=== PATIENT | male | born 1995 | race Hispanic/Latino ===

== ENCOUNTER 2018-08-19 09:33 | Emergency (ER) | payer SELFPAY ==
--- OUTSIDE RECORDS SUMMARY | 2018-08-19 09:36 | XMS REPORT ---
:1995 [facility] [address] [place] [address] Dr. Martinez [address] [place] [id number] Care Team Providers Name Role Phone Unavailable Unavailable Unavailable Problems This patient has no known problems. Allergies, Adverse Reactions, Alerts This patient has no known allergies or adverse reactions. Medications This patient has no known medications.
--- NOTE | 2018-08-19 10:44 | RAD REPORT ---
EXAM DESCRIPTION: CT - Head Brain Wo Cont - 08/19/2018 10:30 am CLINICAL HISTORY: Headache COMPARISON: None. TECHNIQUE: Computed axial tomography of the head was obtained. IV contrast was not requested. All CT scans are performed using dose optimization technique as appropriate and may include automated exposure control or mA/KV adjustment according to patient size. FINDINGS: An intracranial bleed is not seen . The ventricles are normal in caliber. No extra-axial fluid collection is noted. Fluid within the sinuses/ mastoids is not seen. IMPRESSION: No acute intracranial abnormality is seen. If patient's symptoms persist MRI of the bra in would be recommended.
--- NOTE | 2018-08-19 11:22 | ER ---
Nurse's Notes [facility] Name: Ganga Sweeney Jr Age: 23 yrs Sex: Male : 1995 Arrival Date: 08/19/2018 Time: 09:35 Bed 25 Private MD: Diagnosis: Headache Presentation: 08/19 09:50 Presenting complaint: Patient states: headache x 3 days. Fever that began Sunday, but ss has since gone away. Transition of care: patient was not received from another setting of care. Onset of symptoms was August 17, 2018. Risk Assessment: Do you want to hurt yourself or someone else? Patient reports no desire to harm self or others. Initial Sepsis Screen: Does the patient meet any 2 criteria? No. Patient's initial sepsis screen is negative. Does the patient have a suspected source of infection? No. Patient's initial sepsis screen is negative. Care prior to arrival: None. 09:50 Method Of Arrival: Ambulatory ss 09:50 Acuity: TED 4 ss Triage Assessment: 11:40 Pain: Pain began Also complains of no other associated symptoms. iw 11:40 Headache History: The patient has had previous headaches and this one is similar to iw previous episodes. 11:40 Pain: Pain currently is 5 out of 10 on a pain scale. iw Historical: - Allergies: 09:50 No Known Allergies; ss - Home Meds: 09:50 None [Active]; ss - PMHx: 09:50 None; ss - PSHx: 09:50 None; ss - Immunization history:: Adult Immunizations unknown. - Social history:: Smoking status: Patient/guardian denies using tobacco. - Ebola Screening: : Patient denies exposure to infectious person Patient denies travel to an Ebola-affected area in the 21 days before illness onset. Screenin:15 Abuse screen: Denies threats or abuse. Denies injuries from another. Nutritional aj1 screening: No deficits noted. Tuberculosis screening: No symptoms or risk factors identified. 11:39 Fall Risk None identified. iw Assessment: 10:15 General: Appears in no apparent distress. Behavior is calm, cooperative, appropriate aj1 for age. Pain: Complains of pain in forehead. Neuro: Level of Consciousness is awake, alert, obeys commands, Oriented to person, place, time, situation, Moves all extremities. Full function Gait is steady, Speech is normal, Facial symmetry appears normal, Reports headache. Cardiovascular: Patient's skin is warm and dry. Respiratory: Airway is patent Respiratory effort is even, unlabored, Respiratory pattern is regular, symmetrical. GI: No signs and/or symptoms were reported involving the gastrointestinal system. : No signs and/or symptoms were reported regarding the genitourinary system. EENT: No signs and/or symptoms were reported regarding the EENT system. Derm: No signs and/or symptoms reported regarding the dermatologic system. Skin is pink, warm \T\ dry. normal. Musculoskeletal: No signs and/or symptoms reported regarding the musculoskeletal system. Circulation, motion, and sensation intact. 10:28 Reassessment: Patient transported to CT via wheelchair. aj1 11:15 Reassessment: Patient appears in no apparent distress at this time. No changes from aj1 previously documented assessment. Patient and/or family updated on plan of care and expected duration. Pain level reassessed. Patient is alert, oriented x 3, equal unlabored respirations, skin warm/dry/pink. Vital Signs: 09:50 BP 138 / 89; Pulse 74; Resp 16; Temp 98.8(TE); Pulse Ox 98% on R/A; Weight 99.79 kg; ss Height 5 ft. 8 in. (172.72 cm); Pain 4/10; 09:50 Body Mass Index 33.45 (99.79 kg, 172.72 cm) ss [place] Coma Score: 11:20 Eye Response: spontaneous(4). Verbal Response: oriented(5). Motor Response: obeys kb commands(6). Total: 15. ED Course: 09:35 Patient arrived in ED. as 09:50 Triage completed. ss 09:50 Arm band placed on left wrist. ss 10:02 Josefa Rodriguez RN is Primary Nurse. aj1 10:02 Kia Hester FNP-C is PHCP. kb 10:02 Inocencio Rizvi MD is Attending Physician. kb 10:15 Patient has correct armband on for positive identification. Bed in low position. Call aj1 light in reach. Side rails up X 1. 10:15 No provider procedures requiring assistance completed. aj1 10:30 CT Head Brain wo Cont In Process Unspecified. EDMS 11:39 Patient did not have IV access during this emergency room visit. iw Administered Medications: 11:33 Drug: TORadol 60 mg Route: IM; Site: left deltoid; iw 11:40 Follow up: Response: No adverse reaction iw Outcome: 11:22 Discharge ordered by . viry 11:39 Discharged to home ambulatory. iw 11:39 Condition: good 11:39 Discharge instructions given to patient, family, Instructed on discharge instructions, follow up and referral plans. Demonstrated understanding of instructions, follow-up care. 11:40 Patient left the ED. iw Signatures: Dispatcher [employer] EDKia Keene, DIRECTOR EDUCATION-C DIRECTOR EDUCATION-CkJosefa Lorenz RN RN aj1 Heidy Workman Irene, RN RN iw Adrianne Conte RN RN ss
--- NOTE | 2018-08-19 11:22 | EDPHYS ---
Physician Documentation [facility] Name: Ganga Sweeney Jr Age: 23 yrs Sex: Male : 1995 Arrival Date: 08/19/2018 Time: 09:35 Bed 25 Private MD: ED Physician Inocencio Rizvi HPI: 08/19 11:20 This 23 yrs old Male presents to ER via Ambulatory with complaints of kb Headache, Fever. 11:20 The patient complains of pain to the forehead. The patient describes the headache as kb intermittent. Onset: The symptoms/episode began/occurred 3 day(s) ago. Associated signs and symptoms: Pertinent positives: fever. Severity of symptoms: At its worst the pain was moderate, in the emergency department the pain has improved. Headache History: Denies prior headaches. The symptoms are alleviated by nothing. the symptoms are aggravated by nothing. The patient has not experienced similar symptoms in the past. The patient has not recently seen a physician. Pt reports headache that is intermittent and has been going on for 3 days. Reports fever 2 days ago. Rhinorrhea started today. Historical: - Allergies: 09:50 No Known Allergies; ss - Home Meds: 09:50 None [Active]; ss - PMHx: 09:50 None; ss - PSHx: 09:50 None; ss - Immunization history:: Adult Immunizations unknown. - Social history:: Smoking status: Patient/guardian denies using tobacco. - Ebola Screening: : Patient denies exposure to infectious person Patient denies travel to an Ebola-affected area in the 21 days before illness onset. ROS: 11:16 Cardiovascular: Negative for chest pain, palpitations, and edema, Respiratory: Negative kb for shortness of breath, cough, wheezing, and pleuritic chest pain, Abdomen/GI: Negative for abdominal pain, nausea, vomiting, diarrhea, and constipation, Back: Negative for injury and pain, MS/Extremity: Negative for injury and deformity, Skin: Negative for injury, rash, and discoloration. 11:16 Constitutional: Positive for fever. 11:16 ENT: Positive for rhinorrhea. 11:16 Neuro: Positive for headache, Negative for altered mental status, dizziness, gait disturbance. Exam: 11:16 Constitutional: This is a well developed, well nourished patient who is awake, alert, kb and in no acute distress. Head/Face: Normocephalic, atraumatic. ENT: Nares patent. No nasal discharge, no septal abnormalities noted. Tympanic membranes are normal and external auditory canals are clear. Oropharynx with no redness, swelling, or masses, exudates, or evidence of obstruction, uvula midline. Mucous membranes moist. Neck: Trachea midline, no thyromegaly or masses palpated, and no cervical lymphadenopathy. Supple, full range of motion without nuchal rigidity, or vertebral point tenderness. No Meningismus. Chest/axilla: Normal chest wall appearance and motion. Nontender with no deformity. No lesions are appreciated. Cardiovascular: Regular rate and rhythm with a normal S1 and S2. No gallops, murmurs, or rubs. Normal PMI, no JVD. No pulse deficits. Respiratory: Lungs have equal breath sounds bilaterally, clear to auscultation and percussion. No rales, rhonchi or wheezes noted. No increased work of breathing, no retractions or nasal flaring. Abdomen/GI: Soft, non-tender, with normal bowel sounds. No distension or tympany. No guarding or rebound. No evidence of tenderness throughout. Skin: Warm, dry with normal turgor. Normal color with no rashes, no lesions, and no evidence of cellulitis. MS/ Extremity: Pulses equal, no cyanosis. Neurovascular intact. Full, normal range of motion. Neuro: Awake and alert, GCS 15, oriented to person, place, time, and situation. Cranial nerves II-XII grossly intact. Motor strength 5/5 in all extremities. Sensory grossly intact. Cerebellar exam normal. Normal gait. Vital Signs: 09:50 BP 138 / 89; Pulse 74; Resp 16; Temp 98.8(TE); Pulse Ox 98% on R/A; Weight 99.79 kg; ss Height 5 ft. 8 in. (172.72 cm); Pain 4/10; 09:50 Body Mass Index 33.45 (99.79 kg, 172.72 cm) [place] Coma Score: 11:20 Eye Response: spontaneous(4). Verbal Response: oriented(5). Motor Response: obeys kb commands(6). Total: 15. MDM: 10:03 Patient medically screened. kb 11:20 Data reviewed: vital signs, nurses notes. Data interpreted: Pulse oximetry: on room air kb is 98 %. Interpretation: normal. Counseling: I had a detailed discussion with the patient and/or guardian regarding: the historical points, exam findings, and any diagnostic results supporting the discharge/admit diagnosis, the need for outpatient follow up, a family practitioner, to return to the emergency department if symptoms worsen or persist or if there are any questions or concerns that arise at home. 08/19 10:21 Order name: Flu; Complete Time: 11:09 kb 08/19 11:20 Order name: Urine Dipstick--Ancillary (enter results) bd 08/19 10:21 Order name: CT Head Brain wo Cont; Complete Time: 10:46 kb 08/19 10:21 Order name: Urine Dipstick-Ancillary (obtain specimen); Complete Time: 10:59 kb 08/19 11:21 Order name: Urine Dipstick-Ancillary EDMS Administered Medications: 11:33 Drug: TORadol 60 mg Route: IM; Site: left deltoid; iw 11:40 Follow up: Response: No adverse reaction iw Disposition: 15:06 Co-signature as Attending Physician, Inocencio Rizvi MD I agree with the assessment and bee plan of care. Disposition: 08/19/18 11:22 Discharged to Home. Impression: Headache. - Condition is Stable. - Discharge Instructions: General Headache Without Cause, [id number]. - Medication Reconciliation Form, Thank You Letter, Antibiotic Education, Prescription Opioid Use, Work release form form. - Follow up: Emergency Department; When: As needed; Reason: Worsening of condition. Follow up: Private Physician; When: 2 - 3 days; Reason: Recheck today's complaints, Continuance of care, Re-evaluation by your physician. Signatures: Dispatcher [employer] EDMS Kia Hester, TONY-Inocencio Zavala MD MD cha Williams, Irene, RAE RN Adrianne Hoff RN RN ss Corrections: (The following items were deleted from the chart) 11:40 11:22 08/19/2018 11:22 Discharged to Home. Impression: Headache. Condition is Stable. iw Forms are Medication Reconciliation Form, Thank You Letter, Antibiotic Education, Prescription Opioid Use. Follow up: Emergency Department; When: As needed; Reason: Worsening of condition. Follow up: Private Physician; When: 2 - 3 days; Reason: Recheck today's complaints, Continuance of care, Re-evaluation by your physician. kb
[2018-08-19] MEDS ORDERED: KETOROLAC 30 MG/ML INJ ONE (11:42)
[2018-08-19 12:02] LABS: Urine Blood NEGATIVE (NEG); Urine Glucose NEGATIVE (NEG); Urine Protein TRACE (NEG); Urine Specific Gravity 1.025 (1.005-1.030); Urine pH 6.5 (5.0-7.0)
== END 2018-08-19 11:40 | disposition home or self-care (01) ==
LOC: ER 09:33
DX: R51 Headache (principal)
CPT/HCPCS: 70450; 81003; 87804; 96372; 99283

== ENCOUNTER 2024-12-14 03:21 | Emergency (ER) | payer BC, SELFPAY ==
--- OUTSIDE RECORDS SUMMARY | 2024-12-14 03:26 | XMS REPORT | Continuity of Care Document ---
Author Name Unknown Address [address] [place] [address] Organization [facility] Address [address] [place] [address] Care Team Providers Care Nut Roaster Name Role Phone Pcp, Patient Does Not Have A Primary Care Physic kati Ricardo Segal Attending Clinician [phone] Radiology Attending Clinician Janee Kumar Attending Clinician [phone] Payers Payer Name Policy Type Policy Number Effective Date Expirati on Date Source Problems Condition Name Condition Details Condition Category Status Onset Date Resolution Date Last Treatment Date Treating Clinician Comments Source Open wound of foot except toes with tendon involvemen t Open wound of foot except toes with tendon involvemen t Disease Active 10-30 00:00: 00 Overview: Formattin g of this note might be different from the original. 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 [facility] Allergies, Adverse Reactions, Alerts Allergy Name Allergy Type Status Severity Reaction(s) Onset Date Inactive Date Treating Clinician Comments Source NO KNOWN ALLERGIE S Drug Class Active [facility] Social History Social Habit Start Date Stop Date Quantity Comments Source Exposure to SARS-CoV-2 (event) Not sure [facility] Sexual orientation U [facility] Sex assigned at 1995 00:00:00 1995 00:00:00 [facility] Smoking Status Start Date Stop Date Source Tobacco smoking consumption unknown [facility] Medications Ordered Medication Name Filled Medication Name Start Date Stop Date Current Medication? Ordering Clinician Indication Dosage Frequency Signature (SIG) Comments Components Source ketorolac (TORADOL) injection 30 mg 12-23 02:00: 00 12-23 01:02 :00 No 30mg 30 mg, Slow IV Push, ONCE, 1 dose, Sun12/22/20 at 2100, GUANACO
Fa culty member approving Restricted medication : EMERGENCY ROOM, [facility] NaCl 0.9% (NS) bolus infusion 1,000 mL 12-23 02:00: 00 12-23 01:52 :00 No 1000mL at 999 mL/hr, 1,000 mL, IV Piggyback, ONCE, 1 dose, Sun12/22/20 at 2100, STAT [facility] ibuprofen (MOTRIN) 600 mg tablet 10-30 00:00: 00 Yes 600mg Take 1 Tab by mouth every 6 (six) hours as needed for Alternate with [place] for pain scale 1-3. [facility] HYDROcodone -acetaminop hen (NORCO 5) 5-325 mg tablet 10-30 00:00: 00 Yes 1{tbl} Take 1 Tab by mouth every 4 (four) hours as needed for Pain unrelieved by non-narcot ic analgesics . [facility] cyclobenzap rine (FLEXERIL) 5 mg tablet 10-30 00:00: 00 Yes 5mg Take 1 Tab by mouth 3 (three) times daily. [facility] Vital Signs Vital Name Observation Time Observation Value Comments S yevgeniy Systolic blood pressure 2020-12-22 23:00:00 144 mm[Hg] [facility] Diastolic blood pressure 2020-12-22 23:00:00 87 mm[Hg] [facility] Heart rate 2020-12-22 23:00:00 87 /min [facility] Body temperature 2020-12-22 23:00:00 37.22 Sadia [facility] Respiratory rate 2020-12-22 23:00:00 18 /min [facility] Body weight 2020-12-22 23:00:00 102.513 kg [facility] Oxygen saturation in Arterial blood by Pulse oximetry 2020-12-22 23:00:00 100 /min [facility] Procedures Procedure Date / Time Performed Performing Clinician Source US SCROTUM AND CONTENTS 2024-11-03 14:55:24 Requisitio n, Sarai [facility] XR CHEST 2 VW 2020-12-22 23:19:44 Singer [facility] LIPASE 2020-12-22 23:07:00 [facility] TROPONIN I 2020-12-22 23:07:00 Singer [facility] COMP. METABOLIC PANEL ([id number]) 2020-12-22 23:07:00 Singer [facility] CBC WITH DIFF 2020-12-22 23:07:00 Singh, [facility] PROTHROMBIN TIME / INR 2020-12-22 23:07:00 Pal Singh [facility] D-DIMER 2020-12-22 23:07:00 Janee Hughes [facility] ACTIVATED PARTIAL THRMPLAS REDDY 2020-12-22 23:07:00 Singer [facility] COVID-19 (ID NOW RAPID TESTING) 2020-12-22 23:07:00 Singh, [facility] NOTICE OF PRIVACY PRACTICES 2020-12-22 22:54:51 Doctor Unassigned, [place] [facility] CONSENT/REFUSAL FOR DIAGNOSIS AND TREATMENT 2020-12-22 22:51:49 Doctor Unassigned, [place] [facility] Encounters Start Date/Time End Date/Time Encounter Type Admission Type Attending Clinicians Care Facility Care Department Encounter ID Source 2024-11-13 00:00:00 2024-11-13 09:09:34 Letter (Out) Ricardo Segal [facility] ([place]OL[facility]DA) [id number] [facility] 2024-11-03 09:17:59 2024-11-03 23:59:00 Hospital Encounter Radiology Radiology [facility] [id number] [facility] 2020-12-22 18:14:00 2020-12-22 21:14:00 Emergency Janee Hughes [facility] [id number] [facility] 2020-12-22 17:52:00 2020-12-22 17:52:00 Emergency X [facility] ERT [id number] [facility] Results Test Description Test Time Test Comments Results Result Comments Source US Scrotum and contents 22:08:18 EXAM: US SCROTUM AND CONTENTS HISTORY: 29 years-old Male; Provided indication: Left Testicular pain Pain left testes, family history of testicular cancer. TECHNIQUE: Ultrasound imaging with color Doppler of the scrotum wasperformed. Real Estate Instructor images were obtained for the record. COMPARISON: None FINDINGS: Right Testicle: The right testicle is small in size and normal in shape,and heterogenous in echotexture. The right testicle measures 4.6 by 2 x 20.8 cm, with a volume of 13.3 mL. The blood flow is normal. No focal lesionis seen. Numerous punctate microcalcifications are visualized. Tinyperitesticular fluid with septation. Right Epididymis: The right epididymal head is normal in size anddemonstrates normal blood flow. Left Testicle: The left testicle is small in size and normal in shape, andmildly heterogenous echotexture. The left testicle measures 4.4 x 1.8 x 3.2cm, with a volume of 13.4 mL. The blood flow is normal. No focal lesion isseen. Small hydrocele with internal echogenic debris. Left Epididymis: The left epididymal head is normal in size anddemonstrates normal blood flow. Multiple tubular and serpentine anechoic structures are visualized in theleft inguinal canal. Increased color flow is demonstrated with Valsalva.. [facility] [id number] 00:07:38* Test Item Value Reference Range Interpretation Comments TROPONIN I (test code = 8923582718) 0.003 ng/mL See_Comment [Automated message] The system which generated this result transmitted reference range: <=0.034. The reference range was not used to interpret this result as normal/abnormal. GUZMAN (test code = GUZMAN) Reference (Normal) Range (defined by the 99th percentile reference limit): <= 0.034 ng/mL Note: Cardiac troponin begins to rise 3-4 hours after the onset of ischemia. Repeat in 4-6 hours if the sample was drawn within 3-4 hours of the onset of the symptom and found normal. Diagnosis of myocardial injury is made with acute changes in cTn concentrations with at least one serial sample above the 99th percentile upper reference limit (URL), taken together with the patient's clinical presentation. Biotin has been reported to cause a negative bias, interpret results relative to patient's use of biotin. Lab Interpretation (test code = 11026-7) Normal [facility]. METABOLIC PANEL ([id number])2020-12-22 23:57:34* Test Item Value Reference Range Interpretation Comme nts NA (test code = 7732667738) 137 mmol/L 135-145 K (test code = 8147771378) 4.0 mmol/L 3.5-5.0 CL (test code = 9042000971) 98 mmol/L 98-108 CO2 TOTAL (test code = 3728938256) 24 mmol/L 23-31 AGAP (test code = 7251820957) 2-16 BUN (test code = 9996640582) 29 mg/dL 7-23 H GLUCOSE (test code = 3309222460) 99 mg/dL 70-110 CREATININE (test code = 7579884207) 1.35 mg/dL 0.60-1.25 H TOTAL BILI (test code = 9452492145) 0.7 mg/dL 0.1-1.1 CALCIUM (test code = 6905840506) 11.4 mg/dL 8.6-10.6 H T PROTEIN (test code = 4367555133) 10.1 g/dL 6.3-8.2 H ALBUMIN (test code = 1177117930) 5.6 g/dL 3.5-5.0 H ALK PHOS (test code = 4495756334) 89 U/L 34-122 ALTv (test code = 1742-6) 38 U/L 5-50 AST(SGOT) (test code = 5904500185) 42 U/L 13-40 H eGFR (test code = 0958632617) mL/min/1.73m2 GUZMAN (test code = GUZMAN) Association of Glomerular Filtration Rate (GFR) and Staging of Kidney Disease* + --+ --+ ------+| GFR (mL/min/1.73 m2) ?| With Kidney Damage ?| ?Without Kidney Damage+ --------+ --------+ +| ?>90 ?| ?Stage one ?| ? Normal ?+ ---+ ---+ -------+| ?60-89 ?| ?Stage two ?| ? Decreased GFR ? + --+ --+ ------+| ?30-59 ?| ?Stage three ?| ? Stage three ? + --+ --+ ------+| ?15-29 ?| ?Stage four ? | ? Stage four ?+ ---+ ---+ -------+| ?<15 (or dialysis) ? ?| ?Stage five ? | ? Stage five ?+ ---+ ---+ -------+ *Each stage assumes the associated GFR level has been in effect for at least three months. ?Stages 1 to 5, with or without kidney disease, indicate chronic kidney disease. Notes: Determination of stages one and two (with eGFR >59mL/min/1.73 m2) requires estimation of kidney damage for at least three months as defined by structural or functional abnormalities of the kidney, manifested by either:Pathological abnormalities or Markers of kidney damage (including abnormalities in the composition of the blood or urine or abnormalities in imaging tests). Lab Interpretation (test code = 53632-6) [facility] NOW [facility]APID TEST[facility])2020-12-22 23:57:18* Test Item Value Reference Range Interpretation Comme nts SARS-CoV-2 Rapid ID NOW (test code = 50727-6) Not Detected Not Detected GUZMAN (test code = GUZMAN) ID NOW COVID-19 As say is an isothermal nucleic acid amplification test intended for the qualitative detection of nucleic acid from SARS-CoV-2 viral RNA in nasopharyngeal (SUPERINTENDENT DIVISION) specimens. It is used under Emergency Use Authorization (EUA) by FDA. The limit of detection (LOD) of the assay is 125 Genome Equivalents/mL. A positive result is indicative of the presence of SARS-CoV-2 RNA. ?Clinical correlation with patient history and other diagnostic information is necessary to determine patient infection status. A negative (Not Detected) result does not preclude SARS-CoV-2 infection. In patients with clinical symptoms and other tests that are consistent with SARS-CoV-2 infection, negative results should be treated as presumptive negative and a new specimen should be tested with alternative PCR molecular test. Invalid: Please collect a new specimen for repeat patient testing if clinically indicated. Lab Interpretation (test code = 28982-8) [facility] [id number] 23:57:13* Test Item Value Reference Range Interpretation Comme nts LIPASE (test code = 0400343957) 104 U/L 0-220 Lab Interpretation (test cod e = 12483-1) Normal [facility]2021-[facility] 23:55:35* Test Item Value Reference Range Interpretation Comme nts APTT Patient (test code = 3173-2) See_Comment [Automated message] The system which generated this result transmitted reference range: 23 - 38 Seconds. The reference range was not used to interpret this result as normal/abnormal. GUZMAN (test code = GUZMAN) The [facility] patient population mean normal value for aPTT is 30 seconds. Lab Interpretation (test code = 32893-6) [facility] / [id number] 23:53:53* Test Item Value Reference Range Interpretation Comme nts PROTIME PATIENT (test code = 5964-2) See_Comment [Automated Thubrikar Aortic Valvea ge] The system which generated this result transmitted reference range: 12.0 - 14.7 Seconds. The reference range was not used to interpret this result as normal/abnormal. INR (test code = 6301-6) Normal INR <1.1; Warfarin Therapeutic range 2.0 to 3.0 or 2.5 to 3.5, depending upon the indications. Lab Interpretation (test code = 48811-6) [facility] [id number] 23:44:11* Test Item Value Reference Range Interpretation Comme nts WBC (test code = 6690-2) See_Comment H [Automated messa ge] The system which generated this result transmitted reference range: 4.20 - 10.70 10*3/?L. The reference range was not used to interpret this result as normal/abnormal. RBC (test code = 789-8) See_Comment [Automated messa ge] The system which generated this result transmitted reference range: 4.26 - 5.52 10*6/?L. The reference range was not used to interpret this result as normal/abnormal. HGB (test code = 718-7) 16.2 g/dL 12.2-16.4 HCT (test code = 4544-3) 48.8 % 38.4-49.3 MCV (test code = 787-2) 90.0 fL 81.7-95.6 MCH (test code = 785-6) 29.9 pg 26.1-32.7 MCHC (test code = 786-4) 33.2 g/dL 31.2-35.0 RDW-SD (test code = 96161-4) 39.3 fL 38.5-51.6 RDW-CV (test code = 788-0) 11.9 % 12.1-15.4 L PLT (test code = 777-3) See_Comment [Automated Thubrikar Aortic Valvea ge] The system which generated this result transmitted reference range: 150 - 328 10*3/?L. The reference range was not used to interpret this result as normal/abnormal. MPV (test code = 11357-2) 10.2 fL 9.8-13.0 NRBC/100 WBC (test code = 0329902470) See_Comment [Automated Physician Referral Network (PRN) ssage] The system which generated this result transmitted reference range: 0.0 - 10.0 /100 WBCs. The reference range was not used to interpret this result as normal/abnormal. NRBC x10^3 (test code = 2811386701) <0.01 See_Comment [Automated Thubrikar Aortic Valvea ge] The system which generated this result transmitted reference range: 10*3/?L. The reference range was not used to interpret this result as normal/abnormal. GRAN MAT (NEUT) % (test code = 770-8) 62.4 % IMM GRAN % (test code = 3823574193) 0.50 % LYMPH % (test code = 736-9) 26.9 % MONO % (test code = 5905-5) 8.9 % EOS % (test code = 713-8) 0.9 % BASO % (test code = 706-2) 0.4 % GRAN MAT x10^3(ANC) (test code = 7927607964) 6.97 10*3/uL 1.99-6.95 H IMM GRAN x10^3 (test code = 7933402644) 0.06 10*3/uL 0.00-0.06 LYMPH x10^3 (test code = 731-0) 3.01 10*3/uL 1.09-3.23 MONO x10^3 (test code = 742-7) 0.99 10*3/uL 0.36-1.02 EOS x10^3 (test code = 711-2) 0.10 10*3/uL 0.06-0.53 BASO x10^3 (test code = 704-7) 0.05 10*3/uL 0.01-0.09 Lab Interpretation (test code = 25951-9) Abnormal [facility]"
[2024-12-14] MEDS ORDERED: IBUPROFEN 200 MG TAB PO ONE (03:42)
[2024-12-14 04:08] LABS: Influenza A Ag Negative; Influenza B Ag Negative; SARS-CoV-2 Antigen Rapid Res Negative (Negative)
--- NOTE | 2024-12-14 04:18 | EDPHYS ---
Physician Documentation [facility] Name: Ganga Sweeney Jr Age: 29 yrs Sex: Male : 1995 Arrival Date: 12/14/2024 Time: 03:21 Bed IW1 Private MD: Ricardo Segal B ED Physician Kris Amezcua HPI: 12/14 03:37 This 29 yrs old Male presents to ER via Unassigned with complaints of Fever, ms3 Cough, Flu Symptoms. 03:37 29-year-old male with no past medical history presents to the emergency department for ms3 chills that began at 1:45 AM. Patient states he then went to bed and woke a second time at 2:30 AM chills and was unable to sleep. Patient took his temperature at home and it read 101. Patient denies sick contacts. Patient states he developed an itchy throat and bodyaches yesterday around 3 PM. Patient states his discomfort is rated 2/10.. Historical: - Allergies: 04:43 No Known Allergies; vc1 - Home Meds: 04:43 None [Active]; vc1 - PMHx: 04:43 None; vc1 - PSHx: 04:43 None; vc1 - Immunization history:: Adult Immunizations Client reports having NOT received the Covid vaccine. - Infectious Disease History:: Denies. - Social history:: Smoking status: Patient denies any tobacco usage or history of. ROS: 03:37 Cardiovascular: Negative for chest pain, and palpitations. ms3 03:37 Abdomen/GI: Negative for abdominal pain, nausea, vomiting, diarrhea, and constipation, MS/Extremity: Negative for injury and deformity, Skin: Negative for injury, rash, and discoloration, 03:37 Constitutional: Positive for body aches, chills, fever, Exam: 03:37 Constitutional: This is a well developed, well nourished patient who is awake, alert, ms3 and in no acute distress. Cardiovascular: Regular rate and rhythm with a normal S1 and S2. No gallops, murmurs, or rubs. Normal PMI, no JVD. No pulse deficits. Respiratory: Lungs have equal breath sounds bilaterally, clear to auscultation and percussion. No rales, rhonchi or wheezes noted. No increased work of breathing, no retractions or nasal flaring. Abdomen/GI: Soft, non-tender, with normal bowel sounds. No distension or tympany. No guarding or rebound. No evidence of tenderness throughout. Skin: Warm, dry with normal turgor. Normal color with no rashes, no lesions, and no evidence of cellulitis. Vital Signs: 04:39 BP 122 / 84; Pulse 91; Resp 12; Temp 102.2; Pulse Ox 97% on R/A; Weight 99.79 kg; vc1 Height 5 ft. 8 in. ; Pain 3; 04:39 Body Mass Index 33.45 (99.79 kg, 172.72 cm) vc1 04:39 Pain Scale: Adult vc1 MDM: 03:37 Differential diagnosis: viral Infection, URI, Influenza vs COVID. ms3 03:39 Medical Screening Exam initiated ms3 04:36 Data reviewed: vital signs, nurses notes, lab test result(s), and as a result, I will ms3 discharge patient. I considered the following discharge prescriptions or medication management in the emergency department Medications were administered in the Emergency Department. See MAR. Counseling: I had a detailed discussion with the patient and/or guardian regarding the historical points, exam findings, and any diagnostic results supporting the discharge/admit diagnosis, lab results, the need for outpatient follow up, to return to the emergency department if symptoms worsen or persist or if there are any questions or concerns that arise at home. Special discussion: I discussed with the patient/guardian in detail that at this point there is no indication for admission to the hospital. It is understood, however, that if the symptoms persist or worsen the patient needs to return immediately for re-evaluation. ED course: Discussed negative flu and COVID results with the patient. Discussed with patient possible other viral sources. Patient is without abdominal pain. Lung sounds are clear to auscultation bilaterally. Patient to follow-up Dr. Flowers in 2 to 3 days. Return precautions discussed include worsening symptoms, or any other concerns. On reevaluation patient is alert and orient x 4, no apparent distress, nontoxic-appearing, speaking full sentences, ambulatory in the emergency department.. 12/14 03:28 Order name: COVID-19 Ag + Flu A+B Ag; Complete Time: 04:10 ms3 Administered Medications: 03:51 Drug: Ibuprofen PO 600 mg PO once Route: PO; vc1 04:55 Follow up: Response: No adverse reaction; Temperature is decreased vc1 Disposition Summary: 12/14/24 04:17 Discharge Ordered Notes: Location: Home ms3 Condition: Stable ms3 Diagnosis - Fever, unspecified ms3 - Acute upper respiratory infection, unspecified(12/14/24 04:18) ms3 Followup: ms3 - With: Rich Flowers DO - When: 2 - 3 days - Reason: Recheck today's complaints Discharge Instructions: - Discharge Summary Sheet ms3 - Fever, Adult ms3 - Upper Respiratory Infection, Adult ms3 Forms: - Medication Reconciliation Form ms3 - Antibiotic Education ms3 - Prescription Opioid Use ms3 - Patient Portal Instructions ms3 - Leadership Thank You Letter ms3 Signatures: Dispatcher [employer] EDKris Kohler DO DO ms3 Vilma Martin, RN RN vc1 Corrections: (The following items were deleted from the chart) 03:29 03:29 COVID-19 Ag + Flu A+B Ag+I.LAB.BRZ ordered. EDMS EDMS 04:18 04:17 Acute upper respiratory infection, unspecified ms3 ms3 04:44 04:43 PMHx: Unable to Obtain; vc1 vc1
--- NOTE | 2024-12-14 04:57 | ER ---
Nurse's Notes [facility] Name: Ganga Sweeney Jr Age: 29 yrs Sex: Male : 1995 Arrival Date: 12/14/2024 Time: 03:21 Bed IW1 Private MD: Ricardo Segal B Diagnosis: Fever, unspecified;Acute upper respiratory infection, unspecified Presentation: 12/14 04:39 Chief complaint: Patient states: chills , body aches, hot flashes that started vc1 yesterday. Coronavirus screen: chills, fever, muscle pain, shaking with chills, Client presents with at least one sign or symptom that may indicate coronavirus-19. Ebola Screen: Patient negative for fever greater than or equal to 101.5 degrees Fahrenheit, and additional compatible Ebola Virus Disease symptoms Patient denies exposure to infectious person. Patient denies travel to an Ebola-affected area in the 21 days before illness onset. No symptoms or risks identified at this time. Initial Sepsis Screen: Does the patient meet any 2 criteria? Temp <36.0*C (96.8*F)) or > 38.3*C (100.9*F). No. Patient's initial sepsis screen is negative. Does the patient have a suspected source of infection? No. Patient's initial sepsis screen is negative. Risk Assessment: Do you want to hurt yourself or someone else? Patient reports no desire to harm self or others. Onset of symptoms was December 13, 2024. 04:39 Method Of Arrival: Ambulatory vc1 04:39 Acuity: TED 4 vc1 Triage Assessment: 04:43 General: Appears in no apparent distress. well groomed, well developed, Behavior is vc1 calm, cooperative, appropriate for age. Pain: Complains of pain in generalized body aches. Neuro: Level of Consciousness is awake, alert, obeys commands, Oriented to person, place, time, situation, Appropriate for age. Cardiovascular: Patient's skin is warm and dry. Respiratory: Airway is patent Respiratory effort is even, unlabored, Respiratory pattern is regular, symmetrical. Historical: - Allergies: 04:43 No Known Allergies; vc1 - Home Meds: 04:43 None [Active]; vc1 - PMHx: 04:43 None; vc1 - PSHx: 04:43 None; vc1 - Immunization history:: Adult Immunizations Client reports having NOT received the Covid vaccine. - Infectious Disease History:: Denies. - Social history:: Smoking status: Patient denies any tobacco usage or history of. Screenin:45 [facility] ED Fall Risk Assessment (Adult) History of falling in the last 3 months, vc1 including since admission No falls in past 3 months (0 pts) Confusion or Disorientation No (0 pts) Intoxicated or Sedated No (0 pts) Impaired Gait No (0 pts) Mobility Assist Device Used No (0 pt) Altered Elimination No (0 pt) Score/Fall Risk Level 0 - 2 = Low Risk Maintained a safe environment. Abuse screen: Denies threats or abuse. Nutritional screening: No deficits noted. Tuberculosis screening: No symptoms or risk factors identified. Vital Signs: 04:39 BP 122 / 84; Pulse 91; Resp 12; Temp 102.2; Pulse Ox 97% on R/A; Weight 99.79 kg; vc1 Height 5 ft. 8 in. ; Pain 3/10; 04:39 Body Mass Index 33.45 (99.79 kg, 172.72 cm) vc1 04:39 Pain Scale: Adult vc1 ED Course: 03:25 Patient arrived in ED. gm2 03:25 Ricardo Segal MD is Private Physician. gm2 03:28 Kris Amezcua DO is Attending Physician. ms3 04:17 Rich Flowers DO is Referral Physician. ms3 04:43 Triage completed. vc1 04:45 Patient has correct armband on for positive identification. Provided Education on: OTC vc1 medication to treat symptoms. . 04:45 No provider procedures requiring assistance completed. Patient did not have IV access vc1 during this emergency room visit. 04:48 Arm band placed on right wrist. vc1 Administered Medications: 03:51 Drug: Ibuprofen PO 600 mg PO once Route: PO; vc1 04:55 Follow up: Response: No adverse reaction; Temperature is decreased vc1 Medication: 04:48 VIS not applicable for this client. vc1 Outcome: 04:17 Discharge ordered by . ms3 04:45 Discharged to home ambulatory, vc1 04:45 Condition: stable 04:45 Discharge instructions given to patient, Instructed on discharge instructions, Demonstrated understanding of instructions, 04:56 Patient left the ED. vc1 Signatures: Kris Amezcua DO DO ms3 Veronica, Vilma RN RN vc1 Estefani Bolton gm2 Corrections: (The following items were deleted from the chart) 04:44 04:43 PMHx: Unable to Obtain; vc1 vc1
[2024-12-14 05:01] VITALS: BP 122/84; TEMP 102.2; O2SAT 97
== END 2024-12-14 04:56 | disposition home or self-care (01) ==
LOC: ER 03:21
DX: J06.9 Acute upper respiratory infection, unspecified (principal); Z11.52 Encounter for screening for COVID-19
CPT/HCPCS: 36415; 87428; 99283